=== PATIENT | male | born 1955 | race Caucasian/White ===

== ENCOUNTER 2024-06-14 14:42 | Emergency (ER) | payer OTHER ==
[2024-06-14] MEDS: Lidocaine 1% 5 ML VIAL INJECT ONE (14:50)
[2024-06-14] MEDS: Bacitracin Oint 1 GM U/D Packet TOP ONE (14:50)
== END 2024-06-14 15:35 | disposition home or self-care (01) ==
LOC: MERGE 14:42 → LL.ED 14:42
DX: S61.411A Laceration without foreign body of right hand, initial encounter (principal); Z88.2 Allergy status to sulfonamides; Z88.8 Allergy status to other drugs, medicaments and biological substances; Z79.899 Other long term (current) drug therapy; W26.8XXA Contact with other sharp object(s), not elsewhere classified, initial encounter
CPT/HCPCS: 12001; 99282; J3490